=== PATIENT | male | born 1995 | race Hispanic/Latino ===

== ENCOUNTER 2022-08-29 21:32 | Emergency (ER) | payer OTHER, BC ==
[~2022-08-29] VITALS: Ht 177.8 cm; Wt 99.8 kg
[2022-08-29 22:36] LABS: BASOPHILS % 0.2 % (0.0-1.0); EOSINOPHILS # (AUTO) 0.1 (0.0-0.4); EOSINOPHILS % 0.6 % (0.0-6.0); HEMATOCRIT 46.7 % (38.2-49.6); HEMOGLOBIN 16.2 g/dL (14.0-18.0); LYMPHOCYTES # (AUTO) 2.5 (1.0-3.2); LYMPHOCYTES % 14.5 % (18.0-39.1); MEAN CORPUSCULAR HEMOGLOBIN 29.7 pg (28-32); MEAN CORPUSCULAR HGB CONC 34.7 g/dL (31-35); MEAN CORPUSCULAR VOLUME 85.7 fL (81-99); MONOCYTES % 5.7 % (4.4-11.3); NEUTROPHILS # (AUTO) 13.5 (2.1-6.9); NEUTROPHILS % 78.7 % (38.7-80.0); PLATELET COUNT 428 x10e3/uL (140-360); RED BLOOD COUNT 5.45 x10e6/uL (4.3-5.7); RED CELL DISTRIBUTION WIDTH 12.1 % (11.7-14.4)
[2022-08-29] MEDS ORDERED: IOPAMIDOL 370 MG/ML 100 ML INFUS..BTL INJ ONE (22:39)
[2022-08-29 22:55] LABS: ALBUMIN/GLOBULIN RATIO 1.4 (0.8-2.0); ANION GAP 19.1 mmol/L (8-16); CALCIUM 9.6 mg/dL (8.4-10.2); CREATININE, SERUM 1.02 mg/dL (0.72-1.25); POTASSIUM 4.1 mmol/L (3.5-5.1)
[2022-08-29 23:15] LABS: CLARITY,URINE SL CLOUDY (CLEAR); COLOR,URINE YELLOW (YELLOW); KETONES,URINE TRACE (NEGATIVE); LEUKOCYTE ESTERASE ,URINE NEGATIVE (NEGATIVE); NITRITE,URINE NEGATIVE (NEGATIVE); PROTEIN,URINE DIPSTICK 1+ (NEGATIVE); URINE UROBILINOGEN 0.2 mg/dL (0.2 - 1)
[2022-08-29 23:18] LABS: AMORPHOUS SEDIMENT,URINE MODERATE (FEW); BACTERIA,URINE FEW /HPF; EPITHELIAL CELLS,URINE FEW /LPF; MUCUS,URINE MANY (RARE); WBC,URINE (MAN) 0-5 /HPF (0-5)
[2022-08-30 00:41] VITALS: O2SAT 97
[2022-08-30] MEDS ORDERED: ORPHENADRINE C100 MG PO (00:43)
[2022-08-30] MEDS ORDERED: NAPROSYN500 MG PO (00:43)
== END 2022-08-30 00:53 | disposition home or self-care (01) ==
LOC: ER 21:38
DX: S00.83XA Contusion of other part of head, initial encounter (principal); S30.0XXA Contusion of lower back and pelvis, initial encounter; S50.812A Abrasion of left forearm, initial encounter; S50.811A Abrasion of right forearm, initial encounter; S60.512A Abrasion of left hand, initial encounter; S60.511A Abrasion of right hand, initial encounter; V47.5XXA Car driver injured in collision with fixed or stationary object in traffic accident, initial encounter; Y92.488 Other paved roadways as the place of occurrence of the external cause
CPT/HCPCS: 36415; 70450; 71260; 72125; 74177; 80053; 81001; 83690; 85025; 99284; Q9967